=== PATIENT | female | born 1955 | race Caucasian/White ===

== ENCOUNTER → 2018-08-03 10:06 | Outpatient (CLI) | payer OTHER, SELFPAY ==
[2018-08-03 11:19] LABS: Cholesterol 267 mg/dL (140-199); Glucose 96 mg/dL (80-110); HDL Cholesterol 51 mg/dL (40-60); LDL Cholesterol Calculated 177 mg/dL (<100); Triglycerides 197 mg/dL (35-150)
[2018-08-03 11:47] LABS: Thyroid Stimulating Hormone 2.49 uIU/mL (0.47-4.68)
== END ==
PROVIDERS: Visit Provider Family Medicine
DX: E78.5 Hyperlipidemia, unspecified (principal); R89.9 Unspecified abnormal finding in specimens from other organs, systems and tissues; Z13.29 Encounter for screening for other suspected endocrine disorder
CPT/HCPCS: 36415; 80061; 82947; 84443

== ENCOUNTER → 2020-09-11 09:20 | Outpatient (CLI) | payer MEDICARE, OTHER, SELFPAY ==
--- NOTE | 2020-09-11 09:22 | DI.MG.S_ITS ---
BILATERAL DIGITAL SCREENING MAMMOGRAM 3D/2D WITH CAD: 09/11/2020 CLINICAL: Routine screening. Comparison is made to exams dated: 08/20/2016 mammogram, 02/15/2015 mammogram, 05/05/2013 mammogram, and 07/22/2010 mammogram - [facility]. There are scattered fibroglandular elements in both breasts. Current study was also evaluated with a Computer Aided Detection (CAD) system. No significant masses, calcifications, or other findings are seen in either breast. There has been no significant interval change. IMPRESSION: NEGATIVE There is no mammographic evidence of malignancy. A 1 year screening mammogram is recommended. This exam was interpreted at Station ID: [id number]. NOTE: For mammograms, a report in lay terms will be sent to the patient. Approximately 15% of breast malignancies will not be visualized mammographically. In the management of a palpable breast mass, a negative mammogram must not discourage biopsy of a clinically suspicious lesion. Electronically Signed By: Karine goodwin/khari:09/11/2020 12:01:38 copy to: Krystle Terrazas letter sent: Normal Exam ACR BI-RADS Category 1: Negative 3341F
[2020-09-11 10:49] LABS: Cholesterol 263 mg/dL (140-199); Glucose 95 mg/dL (80-110); HDL Cholesterol 51 mg/dL (40-60); LDL Cholesterol Calculated 177 mg/dL (<100); Triglycerides 175 mg/dL (35-150)
== END ==
PROVIDERS: PCP Family Medicine; Referring Provider Family Medicine; Visit Provider Family Medicine
DX: Z12.31 Encounter for screening mammogram for malignant neoplasm of breast (principal); Z12.39 Encounter for other screening for malignant neoplasm of breast; E78.5 Hyperlipidemia, unspecified
CPT/HCPCS: 36415; 77063; 77067; 80061; 82947

== ENCOUNTER → 2021-07-07 10:37 | Outpatient (CLI) | payer MEDICARE, OTHER, SELFPAY ==
[2021-07-07 12:40] LABS: Cholesterol 277 mg/dL (140-199); HDL Cholesterol 50 mg/dL (40-60); LDL Cholesterol Calculated 204 mg/dL (<100); Triglycerides 114 mg/dL (35-150)
== END ==
PROVIDERS: PCP Family Medicine; Referring Provider Family Medicine; Visit Provider Family Medicine
DX: E78.5 Hyperlipidemia, unspecified (principal)
CPT/HCPCS: 36415; 80061

== ENCOUNTER → 2021-10-27 09:21 | Outpatient (CLI) | payer MEDICARE, OTHER, SELFPAY ==
[2021-10-27 10:33] LABS: Cholesterol 163 mg/dL (140-199); HDL Cholesterol 59 mg/dL (40-60); LDL Cholesterol Calculated 91 mg/dL (<100); Triglycerides 64 mg/dL (35-150)
== END ==
PROVIDERS: PCP Family Medicine; Referring Provider Family Medicine; Visit Provider Family Medicine
DX: E78.5 Hyperlipidemia, unspecified (principal)
CPT/HCPCS: 36415; 80061

== ENCOUNTER → 2022-02-02 07:46 | Outpatient (CLI) | payer MEDICARE, OTHER, SELFPAY ==
[2022-02-02 09:06] LABS: Cholesterol 183 mg/dL (140-199); Glucose 91 mg/dL (80-110); HDL Cholesterol 57 mg/dL (40-60); LDL Cholesterol Calculated 109 mg/dL (<100); Triglycerides 86 mg/dL (35-150)
== END ==
PROVIDERS: PCP Family Medicine; Referring Provider Family Medicine; Visit Provider Family Medicine
DX: Z13.1 Encounter for screening for diabetes mellitus (principal); Z13.220 Encounter for screening for lipoid disorders; E78.5 Hyperlipidemia, unspecified
CPT/HCPCS: 36415; 80061; 82947

== ENCOUNTER → 2022-12-16 09:55 | Outpatient (CLI) | payer MEDICARE, OTHER, SELFPAY ==
[2022-12-16 11:02] LABS: Alanine Aminotransferase 29 IU/L (<35); Albumin 4.1 g/dL (3.5-5.0); Albumin Globulin Ratio 1.2 (1.0-2.8); Alkaline Phosphatase 82 U/L (38-126); Aspartate Aminotransferase 29 IU/L (14-36); BUN Creatinine Ratio 18.7 (6-22); Bilirubin Total 0.5 mg/dL (0.2-1.3); Blood Urea Nitrogen 14 mg/dL (7-17); Carbon Dioxide 31 mmol/L (22-32); Chloride 102 mmol/L (98-107); Cholesterol 211 mg/dL (140-199); Estimated Glomerular Filt Rate > 60 mL/min (>60); Globulin 3.5 g/dL (1.7-4.1); Glucose 96 mg/dL (80-110); HDL Cholesterol 63 mg/dL (40-60); HEMOLYSIS < 15 (0-50); LDL Cholesterol Calculated 127 mg/dL (<100); Potassium 3.9 mmol/L (3.4-5.1); Sodium 137 mmol/L (137-145); Total Protein 7.6 g/dL (6.3-8.2); Triglycerides 104 mg/dL (35-150)
[2022-12-16 16:43] LABS: Hep C Virus Ab w/Reflex Quant NEGATIVE s/c (NEGATIVE)
== END ==
PROVIDERS: PCP Family Medicine; Referring Provider Family Medicine; Visit Provider Family Medicine
DX: E78.5 Hyperlipidemia, unspecified (principal); Z13.9 Encounter for screening, unspecified
CPT/HCPCS: 36415; 80053; 80061; 86803

== ENCOUNTER → 2023-01-28 08:56 | Outpatient (CLI) | payer MEDICARE, OTHER, SELFPAY ==
--- NOTE | 2023-01-28 08:58 | DI.MG.S_ITS ---
BILATERAL DIGITAL SCREENING MAMMOGRAM 3D/2D WITH CAD: 01/28/2023 CLINICAL: Routine screening. Comparison is made to exams dated: 09/11/2020 mammogram, 08/20/2016 mammogram, and 02/15/[address] - [facility]. There are scattered areas of fibroglandular density in both breasts (category b / 25%-50% glandular tissue). Current study was also evaluated with a Computer Aided Detection (CAD) system. No significant masses, calcifications, or other findings are seen in either breast. There has been no significant interval change. IMPRESSION: NEGATIVE There is no mammographic evidence of malignancy. A 1 year screening mammogram is recommended. Based on the Tyrer Cuzick model (a risk assessment model) the patient's lifetime risk is 4.2% and her 10 year risk is 2.5%. According to the ACR, ACS, and NCCN guidelines, an annual breast MRI exam along with mammogram is recommended if the patient's lifetime risk is 20% or greater. This exam was interpreted at Station ID: [id number]. NOTE: For mammograms, a report in lay terms will be sent to the patient. Approximately 15% of breast malignancies will not be visualized mammographically. In the management of a palpable breast mass, a negative mammogram must not discourage biopsy of a clinically suspicious lesion. Electronically Signed By: Gavin duncan/khari:01/28/2023 13:17:22 copy to: Krystle Terrazas letter sent: Normal Exam ACR BI-RADS Category 1: Negative 3341F
== END ==
PROVIDERS: PCP Family Medicine; Referring Provider Family Medicine; Visit Provider Family Medicine
DX: Z12.31 Encounter for screening mammogram for malignant neoplasm of breast (principal)
CPT/HCPCS: 77063; 77067

== ENCOUNTER 2023-02-23 10:00 | Day surgery (SDC) | payer MEDICARE, OTHER, SELFPAY ==
[2023-02-23 10:28] VITALS: BP 148/77; PULSE 77; RESP 16; TEMP 36.4; O2SAT 96; BMI 31.6
[2023-02-23] MEDS: LACTATED RINGERS 1,000 ML 42 ML IV (10:35)
--- NOTE | 2023-02-23 10:47 | PM.HP.1 ---
History of Present Illness History of Present Illness Date Patient Seen: 02/23/23 Time Patient Seen: 10:47 Chief complaint: [facility] [place]ative: 67-year-old woman here for routine screening colonoscopy. Last colonoscopy 10 years ago normal. No family history of intestinal malignancy in first-degree relatives. No abdominal concerns today including pain, unintentional weight loss blood per rectum. [facility] Surgical History (Updated 10/26/17 @ 06:35 by Conversion Provider) Status post delivery Status post delivery Status post delivery Status post delivery Family History (Updated 01/21/15 @ 00:00 by Conversion Provider) Grandfather Heart disease Social History marital status: number of children: 2 household members: spouse lives independently: Yes caregiver/support person: No housing: house Smoking Status: Never smoker second hand exposure: No alcohol intake: current substance use type: does not use Meds Home Medications and Allergies Home Medications Medication Instructions Recorded Confirmed Type No Known Home Medications 02/23/23 02/23/23 History Allergies Allergy/AdvReac Type Severity Reaction Status Date / Time doxycycline [DOXYCYCLINE] Allergy Mild HIVES Verified 02/23/23 10:53 morphine Allergy Mild Verified 02/23/23 10:53 wheat Allergy Mild Verified 02/23/23 10:53 lactose AdvReac Mild OVER Verified 02/23/23 10:53 PRODUCTIVE PHELGM Exam Vital Signs (past 8 hours): - 02/23/23 10:28 Temperature 97.6 F Pulse Rate 77 Respiratory Rate 16 Blood Pressure 148/77 H Pulse Oximetry 96 Oxygen Delivery Method Room Air Oxygen Delivery Method Room Air Narrative Exam Narrative: General adult woman alert oriented no acute distress Abdomen soft nontender nondistended Assessment & Plan Assessment & Plan narrative: The patient requires colorectal screening and colonoscopy is recommended. Technical details were discussed. Risks, benefits, alternatives explained. Risks including but not limited to myocardial infarction, aspiration, bleeding, pain, missed lesion, incomplete examination, need for further radiographic studies, colonic perforation, and need for major abdominal surgery were discussed. All questions were answered to their satisfaction, and they are in agreement with this plan.
--- NOTE | 2023-02-23 11:19 | P.OP.COLON_ITS ---
Operative Date/Time/Diagnoses Date of procedure: 02/23/23 Time of procedure: 11:19 Pre-op diagnosis: Colorectal screening Procedure & Clinicians Study performed: Colonoscopy Same procedure as scheduled: Yes Indications: Colorectal screening Surgeon: Joel Costello Procedure Notes Procedure in detail: The history and physical was performed/updated and the patient is ASA class is 2. . The procedure was discussed in detail with the patient. Potential risks complications including infection, bleeding, missed diagnosis, perforation, need for surgery, and were explained. Their questions were answered and informed consent was obtained. Patient was brought to the procedure room and placed standard monitoring equipment. The patient's vital signs were monitored continuously throughout the entire procedure. Prior to starting time-out was performed. The patient was placed in the left lateral recumbent position. Procedural sedation was administered by anesthesia. Examination began with a thorough inspection of the perianal area there was no evidence of fissures, fistulae, external hemorrhoids or cutaneous malignancy. The colonoscopy scope was then placed into the anal canal and was advanced to the cecum, which was identified by the ileocecal va lve, the appendiceal orifice and the confluence of the taenia. The scope was then slowly withdrawn examining colon thoroughly in all directions, irrigating it of any residual stool. Normal healthy colon. No masses or polyps. Mild diverticulosis within the sigmoid colon. The patient tolerated the procedure well. They will be discharged once criteria are met. The prep was of good/excellent quality. The withdrawl time was 6 minutes. Specimen(s): none sent Impression: Normal colonoscopy Post-procedure Plan for aftercare: No further colonoscopy needed unless symptomatic. Disposition: same day surgery
[2023-02-23 11:41] VITALS: BP 78/48; PULSE 77; RESP 10; O2SAT 95
[2023-02-23 11:48] VITALS: BP 86/57; PULSE 82; RESP 16; O2SAT 98
[2023-02-23 11:51] VITALS: BP 118/61; PULSE 74; RESP 19; O2SAT 96
[2023-02-23 12:04] VITALS: BP 120/65; PULSE 75; RESP 18; O2SAT 99
== END 2023-02-23 12:10 | disposition home or self-care (01) ==
PROVIDERS: PCP Family Medicine; Referring Provider Surgery; Visit Provider Surgery
PROC: 0DJD8ZZ Inspection of Lower Intestinal Tract, Via Natural or Artificial Opening Endoscopic (ICD-10-PCS; CPT 45378; principal; 2023-02-23 11:15)
DX: Z12.11 Encounter for screening for malignant neoplasm of colon (principal); K57.30 Diverticulosis of large intestine without perforation or abscess without bleeding
CPT/HCPCS: G0121; J2704

== ENCOUNTER → 2024-04-19 09:17 | Outpatient (CLI) | payer MEDICARE, OTHER, SELFPAY ==
[2024-04-19 10:16] LABS: Cholesterol 273 mg/dL (140-199); Glucose 98 mg/dL (80-110); HDL Cholesterol 54 mg/dL (40-60); LDL Cholesterol Calculated 190 mg/dL (<100); Triglycerides 144 mg/dL (35-150)
== END ==
PROVIDERS: PCP Family Medicine; Referring Provider Family Medicine; Visit Provider Family Medicine
DX: Z13.1 Encounter for screening for diabetes mellitus (principal); Z13.9 Encounter for screening, unspecified
CPT/HCPCS: 36415; 80061; 82947

== ENCOUNTER → 2024-08-09 09:00 | Outpatient (CLI) | payer MEDICARE, OTHER, SELFPAY ==
[2024-08-09 10:17] LABS: Cholesterol 260 mg/dL (140-199); HDL Cholesterol 55 mg/dL (40-60); LDL Cholesterol Calculated 173 mg/dL (<100); Triglycerides 159 mg/dL (35-150)
== END ==
PROVIDERS: PCP Family Medicine; Referring Provider Family Medicine; Visit Provider Family Medicine
DX: E78.5 Hyperlipidemia, unspecified (principal)
CPT/HCPCS: 36415; 80061

== ENCOUNTER → 2024-10-26 08:06 | Outpatient (CLI) | payer MEDICARE, OTHER, SELFPAY ==
[2024-10-26 09:41] LABS: Cholesterol 217 mg/dL (140-199); HDL Cholesterol 58 mg/dL (40-60); LDL Cholesterol Calculated 130 mg/dL (<100); Triglycerides 147 mg/dL (35-150)
== END ==
LOC: LAB 08:07
PROVIDERS: PCP Family Medicine; Referring Provider Family Medicine; Visit Provider Family Medicine
DX: E78.5 Hyperlipidemia, unspecified (principal)
CPT/HCPCS: 36415; 80061

== ENCOUNTER → 2025-04-19 08:45 | Outpatient (CLI) | payer MEDICARE, OTHER, SELFPAY ==
[2025-04-19 09:43] LABS: Cholesterol 189 mg/dL (140-199); HDL Cholesterol 60 mg/dL (40-60); Triglycerides 138 mg/dL (35-150)
== END ==
PROVIDERS: PCP Family Medicine; Referring Provider Family Medicine; Visit Provider Family Medicine
DX: E78.5 Hyperlipidemia, unspecified (principal)
CPT/HCPCS: 36415; 80061